=== PATIENT | male | born 1965 | race Caucasian/White ===

== ENCOUNTER 2021-12-04 15:40 | Emergency (ER) | payer BC ==
[2021-12-04 16:22] LABS: HEMOGLOBIN 17.7 gm/dl (14.0-17.5); RED BLOOD COUNT 5.52 M/UL (4.20-5.50); WHITE BLOOD COUNT 8.7 K/UL (4.5-11.0)
[2021-12-04] MEDS ORDERED: CYCLOBENZAPRINE10 MG PO ×2 (21:12→22:26)
== END 2021-12-04 21:50 | disposition home or self-care (01) ==
LOC: ER1 15:40
PROVIDERS: Emergency Medicine
DX: M62.838 Other muscle spasm (principal)
CPT/HCPCS: 36415; 71045; 80053; 82550; 82553; 83735; 84484; 85025; 85379; 93005; 96374; 96375; 96376; 99284; J1885; J3360